=== PATIENT | female | born 1950 | race Caucasian/White ===

== ENCOUNTER 2018-11-14 15:57 | Observation (INO) ==
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
[2018-11-14] MEDS ORDERED: Pantoprazole 40 MG VIAL IVP ONE (16:21)
[2018-11-14] MEDS ORDERED: Ondansetron 4 MG/2 ML VIAL IVP ONE (16:21)
[2018-11-14] MEDS ORDERED: 0.9 % Sodium Chloride 1,000 ML IVC ONE (16:21)
[2018-11-14 16:33] LABS: Bilirubin,Urine Small (Negative); Blood,Urine Trace-intact (Negative); Clarity,Urine Slightly Cloudy (Clear); Color,Urine Yellow (Yellow); Glucose,Urine (UA) Normal (Normal); Ketones,Urine Trace mg/dL (Negative); Leukocyte Esterase,Urine Small (Negative); Nitrite,Urine Negative (Negative); PH,Urine 5.5 pH Units (5.0-8.0); Protein,Urine 30 mg/dL (Neg-Trace); Specific Gravity,Urine 1.025 (1.010-1.025); Urobilinogen,Urine Normal (Normal)
[2018-11-14 16:38] LABS: Basophils # 0.1 K/mcL (0.0-0.2); Basophils % 0.5 %; Eosinophils % 0.1 %; Hematocrit 44.1 % (35.3-44.9); Hemoglobin 14.4 g/dL (11.5-15.4); Immature Granulocytes % 0.4 % (0-4); Lymphocytes # 3.3 K/mcL (0.6-4.6); Lymphocytes % 30.7 %; Mean Corpuscular HGB Conc 32.7 g/dL (31.6-35.5); Mean Corpuscular Hemoglobin 28.1 pg (28.0-33.3); Mean Platelet Volume 10.9 fL (9.4-12.4); Monocytes # 0.5 K/mcL (0.0-1.3); Monocytes % 4.3 %; Neutrophils # 6.8 K/mcL (1.6-8.9); Platelet Count 299 K/mcL (140-400); Red Blood Count 5.13 M/mcL (3.82-4.97); Red Cell Distribution Width 12.9 % (11.5-14.5); White Blood Count 10.7 K/mcL (4.3-11.1)
[2018-11-14 16:39] LABS: Bacteria,Urine Moderate per hpf (None-Few); Mucus,Urine Moderate (Few); RBC,Urine 0-3 per hpf (0-3); Squamous Epithelial Cell,Urine Many per lpf (None-Few); WBC,Urine 50-100 per hpf (0-3)
[2018-11-14] MEDS ORDERED: cefTRIAXone 2,000 MG in 0.9 % Sodium Chloride Mini Bag 100 ML IVPB ONE (16:45)
[2018-11-14 16:54] LABS: Alanine Aminotransferase 19 Units/L (7-52); Albumin/Globulin Ratio 1.1 (1.1-2.2); Alkaline Phosphatase 89 Units/L (34-104); Amylase 32 Units/L (29-103); Aspartate Amino Transferase 20 Units/L (13-39); BUN/Creatinine Ratio 18 (6-26); Bilirubin,Direct 0.1 mg/dL (0.0-0.2); Bilirubin,Indirect 0.3 mg/dL (0.0-1.2); Bilirubin,Total 0.4 mg/dL (0.3-1.0); Blood Urea Nitrogen 12 mg/dL (8-23); Carbon Dioxide 24 mEq/L (23-29); Chloride 104 mEq/L (98-107); Globulin 3.6 g/dL (2.4-3.5); Glucose 135 mg/dL (70-105); Lipase 33 Units/L (11-82); Osmolality,Calculated 288 (280-300); Sodium 138 mEq/L (136-145); Total Protein 7.6 g/dL (6.4-8.9); eGFR For African Americans > 60 (> 60); eGFR For Non-African Americans > 60 (> 60)
[2018-11-14 16:57] LABS: Troponin I < 0.03 ng/mL (< 0.04)
[2018-11-14] MEDS ORDERED: D5% in Water 1,000 ML IVC PRN (19:44)
[2018-11-14] MEDS ORDERED: Naloxone 0.4 MG/ML INJ IVP PRN (19:44)
[2018-11-14] MEDS ORDERED: Dextrose Gel 15 GM/37.5 ML TUBE PO PRN ×2 (19:44)
[2018-11-14] MEDS ORDERED: Mag Hydrox/Al Hydrox/Simeth 30 ML UDC PO PRN (19:44)
[2018-11-14] MEDS ORDERED: MOM Conc 10 ML UD.LIQ PO PRN (19:44)
[2018-11-14] MEDS ORDERED: Ondansetron 4 MG/2 ML VIAL IVP PRN (19:44)
[2018-11-14] MEDS ORDERED: *HR* Dextrose 50 % in Water (Syg) 50 ML SYRINGE IVP PRN (19:44)
[2018-11-14] MEDS: 0.9 % Sodium Chloride 1,000 ML IVC SCH (20:43)
[2018-11-15] MEDS: 0.9 % Sodium Chloride 1,000 ML IVC SCH (04:57)
[2018-11-15] MEDS: Insulin LISPRO 300 UNITS/3 ML VIAL SQ SCH ×3 (10:02→17:21)
--- NOTE | 2018-11-15 11:27 | Electrocardiograph Report ---
[address] [address] Test Date: 2018-11-14 Pat Name: Kamila Low Department: EDP-11 Room: [facility] Gender: F [employer] Field Agent: : [id number] Requested By: Rohan Manrique Order Number: [id number] Reading MD: Skyler Key Measurements Intervals [place] Rate: 89 P: 41 MN: 164 QRS: -1 QRSD: 87 T: 29 QT: 358 QTc: 436 Interpretive Statements Sinus rhythm Low voltage, precordial leads Electronically Signed On 11-15-2018 11:25:43 EDT by Skyler Key
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
[2018-11-15] MEDS ORDERED: Ondansetron ODT 4 MG TAB.RAPDIS SL PRN (17:32)
[2018-11-16 06:44] LABS: Basophils % 0.5 %; Eosinophils # 0.1 K/mcL (0.0-0.6); Eosinophils % 0.9 %; Hemoglobin 11.8 g/dL (11.5-15.4); Immature Granulocytes % 0.5 % (0-4); Lymphocytes # 2.8 K/mcL (0.6-4.6); Lymphocytes % 44.1 %; Mean Corpuscular HGB Conc 31.9 g/dL (31.6-35.5); Mean Corpuscular Hemoglobin 27.9 pg (28.0-33.3); Mean Corpuscular Volume 87.5 fL (83.0-100.0); Mean Platelet Volume 10.4 fL (9.4-12.4); Monocytes # 0.4 K/mcL (0.0-1.3); Monocytes % 6.7 %; Platelet Count 227 K/mcL (140-400); Red Blood Count 4.23 M/mcL (3.82-4.97); Red Cell Distribution Width 12.9 % (11.5-14.5); Segmented Neutrophils % 47.3 %; White Blood Count 6.4 K/mcL (4.3-11.1)
[2018-11-16 07:01] LABS: BUN/Creatinine Ratio 10 (6-26); Blood Urea Nitrogen 7 mg/dL (8-23); Calcium 8.1 mg/dL (8.6-10.3); Carbon Dioxide 26 mEq/L (23-29); Chloride 108 mEq/L (98-107); Glucose 126 mg/dL (70-105); Osmolality,Calculated 292 (280-300); Potassium 3.6 mEq/L (3.5-5.1); Sodium 141 mEq/L (136-145); eGFR For African Americans > 60 (> 60); eGFR For Non-African Americans > 60 (> 60)
[2018-11-16] MEDS: Insulin LISPRO 300 UNITS/3 ML VIAL SQ SCH ×2 (07:54→11:46)
[2018-11-16 11:00] VITALS: BP 126/70
--- NOTE | 2018-11-16 12:15 | Discharge Summary ---
Date of Encounter: 11/16/18 Time of Encounter: 09:30 - Discharge Diagnosis (1) Hematochezia Priority: Primary Status: Acute (2) Abdominal pain Priority: Secondary Status: Acute Qualifiers: Abdominal location: epigastric Qualified Code(s): R10.13 - Epigastric pain (3) Hypertension Priority: Secondary Status: Chronic Qualifiers: Hypertension type: essential hypertension Qualified Code(s): I10 - Ess ential (primary) hypertension (4) Hypothyroidism Priority: Secondary Status: Chronic Qualifiers: Hypothyroidism type: unspecified Qualified Code(s): E03.9 - Hypothyroidism, unspecified Hospital course: Ms. Low is a 68 year old female who came to emergency room stating she had onset of nonbloody vomiting and abdominal discomfort the afternoon of November 12. She reports she developed diarrhea a few hours later and had multiple episodes of vomiting and diarrhea that continued into the next day. When she did not improve she came to emergency room was evaluated. Abdominal/pelvis CT showed mild fecalization of proximal small bowel contents and soft tissue stranding of the adjacent small bowel mesentery. There was no dilated bowel suggesting obstruction. She was admitted to [facility] floor for ongoing care needs. I saw her on November 15 and performed a history and physical. By the time I saw her she stated her abdominal pain had lessened. She was placed on IV fluids and clear liquid diet. She reported hematochezia when I saw her the morning of November 16. There appeared to be a small amount of bright red blood with some clots in the toilet. Her abdominal exam showed less tenderness than on admission but patient and family were concerned and requested transfer to [facility]. Contact was made with bed management and arrangements were complete the afternoon of November 16 for transfer for ongoing evaluation and Rx. - Time Spent with Patient Total time spent providing and/or coordinating discharge services: - Discharge Medications Prescriptions: No Action Sucralfate [Carafate] 1 gm PO QIDAC #20 tablet Citalopram [CeleXA] 40 mg PO DAILY Levothyroxine [Synthroid] 150 mcg PO QAM Lisinopril [Zestril] 10 mg PO DAILY Albuterol Neb [Proventil Neb] 2.5 mg IH Q4HR PRN #25 vial.neb PRN Reason: Wheezing OxyCODONE/APAP 10/325 [Percocet 10/325 MG] 1 tab PO Q8H PRN PRN Reason: Pain Aspirin [Ecotrin] 325 mg PO DAILY Albuterol Sulfate [Proventil Inhaler] 1 - 2 puff IH Q4-6H PRN PRN Reason: Shortness Of Breath Atorvastatin [Lipitor] 40 mg PO DAILY Naproxen [EC-Naprosyn] 500 mg PO Q12H PRN PRN Reason: Pain Glimepiride [Amaryl] 2 mg PO DAILY Famotidine [Pepcid] 20 mg PO BID Omeprazole [PriLOSEC] 20 mg PO BIDAC Home Medications: Citalopram [CeleXA] 40 mg PO DAILY 10/27/14 [History] Levothyroxine [Synthroid] 150 mcg PO QAM 10/27/14 [History] Lisinopril [Zestril] 10 mg PO DAILY 10/27/14 [History] Albuterol Neb [Proventil Neb] 2.5 mg IH Q4HR PRN #25 vial.neb 04/19/18 [Rx] Sucralfate [Carafate] 1 gm PO QIDAC #20 tablet 06/29/18 [Rx] Albuterol Sulfate [Proventil Inhaler] 1 - 2 puff IH Q4-6H PRN 08/03/18 [History] Aspirin [Ecotrin] 325 mg PO DAILY 08/03/18 [History] Atorvastatin [Lipitor] 40 mg PO DAILY 08/03/18 [History] Glimepiride [Amaryl] 2 mg PO DAILY 08/03/18 [History] Naproxen [EC-Naprosyn] 500 mg PO Q12H PRN 08/03/18 [History] OxyCODONE/APAP 10/325 [Percocet 10/325 MG] 1 tab PO Q8H PRN 08/03/18 [History] Famotidine [Pepcid] 20 mg PO BID 08/06/18 [History] Omeprazole [PriLOSEC] 20 mg PO BIDAC 11/14/18 [History] Allergies/Adverse Reactions: Allergy/AdvReac Type Severity Reaction Status Date / Time codeine Allergy Anaphylaxis Verified 11/14/18 18:35 metformin Allergy Diarrhea Verified 11/14/18 18:35 propoxyphene Allergy Vomiting Verified 11/14/18 18:35 [From Darvinit-N] gabapentin AdvReac Nausea Verified 11/14/18 18:35 meloxicam AdvReac Dizziness Verified 11/14/18 18:35 Date of admission: 11/14/18 19:27 Primary care physician: Jeromy Weiss MD - Constitutional Vitals: Temp Pulse Resp BP Pulse Ox 98.6 F 76 17 126/70 95 11/16/18 10:59 11/16/18 10:59 11/16/18 10:59 11/16/18 10:59 11/16/18 10:59 - Patient Status Disposition: Transfer Other Condition: Good - Discharge Instructions
== END 2018-11-16 13:00 | disposition other institution (70) ==
LOC: INPPIK 15:57 → EMEROOPIK 15:57 → INPPIK 19:33
PROVIDERS: ADMIT Internal Medicine; ATTEND Internal Medicine

== ENCOUNTER 2020-08-29 17:21 | Observation (INO) ==
[2020-08-29 18:19] LABS: Basophils # 0.1 K/mcL (0.0-0.2); Basophils % 0.6 %; Eosinophils % 0.3 %; Hemoglobin 12.1 g/dL (11.5-15.4); Immature Granulocytes % 0.3 % (0-4); Lymphocytes # 2.7 K/mcL (0.6-4.6); Lymphocytes % 26.3 %; Mean Corpuscular HGB Conc 32.7 g/dL (31.6-35.5); Mean Corpuscular Hemoglobin 28.7 pg (28.0-33.3); Mean Corpuscular Volume 87.9 fL (83.0-100.0); Mean Platelet Volume 10.7 fL (9.4-12.4); Monocytes # 0.5 K/mcL (0.0-1.3); Monocytes % 4.6 %; Platelet Count 339 K/mcL (140-400); Red Blood Count 4.21 M/mcL (3.82-4.97); Red Cell Distribution Width 13.4 % (11.5-14.5); Segmented Neutrophils % 67.9 %; White Blood Count 10.2 K/mcL (4.3-11.1)
[2020-08-29 18:27] LABS: INR 1.2; Prothrombin Time 13.3 Seconds (9.4-12.1)
[2020-08-29 18:30] LABS: Activated Partial Thrombo Time 26.2 Seconds (26.0-36.0)
[2020-08-29 18:40] LABS: Alanine Aminotransferase 8 Units/L (7-52); Albumin 3.5 g/dL (3.5-5.7); Alkaline Phosphatase 65 Units/L (34-104); Amylase 28 Units/L (29-103); Aspartate Amino Transferase 11 Units/L (13-39); BUN/Creatinine Ratio 20 (6-26); Bilirubin,Total 0.3 mg/dL (0.3-1.0); Blood Urea Nitrogen 16 mg/dL (8-23); Calcium 8.9 mg/dL (8.6-10.3); Carbon Dioxide 26 mEq/L (23-29); Chloride 104 mEq/L (98-107); Globulin 3.4 g/dL (2.4-3.5); Glucose 156 mg/dL (70-105); Lipase 32 Units/L (11-82); Osmolality,Calculated 290 (280-300); Sodium 138 mEq/L (136-145); Total Protein 6.9 g/dL (6.4-8.9); eGFR For African Americans > 60 (> 60); eGFR For Non-African Americans > 60 (> 60)
[2020-08-29] MEDS ORDERED: 0.9 % Sodium Chloride 1,000 ML IV ONE (19:06)
[2020-08-29] MEDS ORDERED: *HR* Metoprolol 5 MG/5 ML VIAL IVP ONE (19:06)
[2020-08-29 19:12] LABS: Bilirubin,Urine Negative (Negative); Blood,Urine Negative (Negative); Clarity,Urine Slightly Cloudy (Clear); Color,Urine Yellow (Yellow); Glucose,Urine (UA) Normal (Normal); Ketones,Urine Negative (Negative); Leukocyte Esterase,Urine Small (Negative); Nitrite,Urine Negative (Negative); PH,Urine 5.5 pH Units (5.0-8.0); Protein,Urine Negative (Neg-Trace); Urobilinogen,Urine Normal (Normal)
[2020-08-29 19:27] LABS: Bacteria,Urine Moderate per hpf (None-Few); Mucus,Urine Moderate per lpf (None-Few); RBC,Urine 0-3 per hpf (0-3); Squamous Epithelial Cell,Urine Moderate per hpf (None-Few)
[2020-08-29] MEDS ORDERED: *HR* Heparin 5,000 UNIT/ML VIAL IVP ONE (21:03)
[2020-08-29] MEDS ORDERED: *HR* Heparin 5,000 UNIT/ML VIAL IVP PRN ×4 (21:03→21:54)
[2020-08-29] MEDS ORDERED: Heparin 25,000UNIT/250ML 1/2NS 25,000 UNIT/250 ML IV.SOLN IVC SCH (21:15)
[2020-08-29 21:18] LABS: Hematocrit 35.6 % (35.3-44.9); Hemoglobin 11.6 g/dL (11.5-15.4); Mean Corpuscular HGB Conc 32.6 g/dL (31.6-35.5); Mean Corpuscular Hemoglobin 28.7 pg (28.0-33.3); Mean Corpuscular Volume 88.1 fL (83.0-100.0); Mean Platelet Volume 10.8 fL (9.4-12.4); Platelet Count 329 K/mcL (140-400); Red Blood Count 4.04 M/mcL (3.82-4.97); Red Cell Distribution Width 13.3 % (11.5-14.5); White Blood Count 12.5 K/mcL (4.3-11.1)
[2020-08-29 21:28] LABS: Heparin anti-factor XA UFH < 0.04 IU/mL (0.30-0.70)
[2020-08-29 21:29] LABS: INR 1.1; Prothrombin Time 13.1 Seconds (9.4-12.1)
[2020-08-29] MEDS ORDERED: Naloxone 0.4 MG/ML INJ IVP PRN (21:54)
[2020-08-29] MEDS ORDERED: *HR* OxyCODONE/APAP 10/325 TABLET PO PRN (21:54)
[2020-08-29] MEDS: Heparin 25,000UNIT/250ML 1/2NS 25,000 UNIT/250 ML IV.SOLN IVC SCH (22:27)
[2020-08-30] MEDS ORDERED: 0.9 % Sodium Chloride 1,000 ML IV ONE (02:17)
[2020-08-30] MEDS ORDERED: Dextrose Gel 15 GM/37.5 ML TUBE PO PRN ×2 (07:26)
[2020-08-30] MEDS ORDERED: D5% in Water 1,000 ML IVC PRN (07:26)
[2020-08-30] MEDS ORDERED: *HR* Dextrose 50 % in Water (Vial) 50 ML VIAL IVP PRN (07:26)
[2020-08-30 08:10] LABS: Basophils # 0.1 K/mcL (0.0-0.2); Basophils % 0.5 %; Eosinophils # 0.1 K/mcL (0.0-0.6); Eosinophils % 0.7 %; Hematocrit 35.2 % (35.3-44.9); Hemoglobin 11.3 g/dL (11.5-15.4); Immature Granulocytes % 0.5 % (0-4); Lymphocytes # 4.3 K/mcL (0.6-4.6); Lymphocytes % 44.8 %; Mean Corpuscular HGB Conc 32.1 g/dL (31.6-35.5); Mean Corpuscular Hemoglobin 28.5 pg (28.0-33.3); Mean Corpuscular Volume 88.9 fL (83.0-100.0); Mean Platelet Volume 10.7 fL (9.4-12.4); Monocytes # 0.5 K/mcL (0.0-1.3); Monocytes % 5.2 %; Neutrophils # 4.6 K/mcL (1.6-8.9); Platelet Count 319 K/mcL (140-400); Red Blood Count 3.96 M/mcL (3.82-4.97); Red Cell Distribution Width 13.4 % (11.5-14.5); Segmented Neutrophils % 48.3 %; White Blood Count 9.5 K/mcL (4.3-11.1)
[2020-08-30 08:31] LABS: BUN/Creatinine Ratio 15 (6-26); Blood Urea Nitrogen 12 mg/dL (8-23); Calcium 8.6 mg/dL (8.6-10.3); Carbon Dioxide 26 mEq/L (23-29); Chloride 105 mEq/L (98-107); Glucose 116 mg/dL (70-105); Osmolality,Calculated 287 (280-300); Potassium 3.6 mEq/L (3.5-5.1); Sodium 138 mEq/L (136-145); eGFR For African Americans > 60 (> 60); eGFR For Non-African Americans > 60 (> 60)
[2020-08-30] MEDS ORDERED: Famotidine 20 MG TABLET PO SCH (09:00)
[2020-08-30] MEDS ORDERED: cefTRIAXone 2,000 MG in 0.9 % Sodium Chloride Mini Bag 100 ML IVPB SCH (09:00)
[2020-08-30] MEDS: Insulin LISPRO 300 UNITS/3 ML VIAL SUBQ SCH ×3 (09:16→17:35)
[2020-08-30] MEDS: cefTRIAXone 2,000 MG in Water for inj. (sterile) 20 ML IVP SCH (09:22)
[2020-08-30] MEDS: *HR* Glimepiride 2 MG TABLET PO SCH ×2 (09:23→21:41)
[2020-08-30] MEDS ORDERED: Nitroglycerin 0.4 MG TAB.SUBL SL PRN (11:27)
[2020-08-30] MEDS ORDERED: DILTIAZEM IVC SCH (11:30)
[2020-08-30] MEDS ORDERED: SODIUM CHLORIDE IVC SCH (11:30)
[2020-08-30] MEDS ORDERED: Perflutren Lipid Microsphere 1.3 ML in 0.9 % Sodium Chloride 8.7 ML IVP PRN (11:34)
[2020-08-30] MEDS ORDERED: DilTIAZem 125 MG in 0.9 % Sodium Chloride 50 MG/100 ML IV.SOLN IVC SCH (12:00)
[2020-08-30 12:18] LABS: Estimated Average Glucose 151 mg/dl; Hemoglobin A1C 6.9 %
[2020-08-30] MEDS: Aspirin Enteric Coated 81 MG Tablet PO SCH (12:47)
[2020-08-30] MEDS: Pantoprazole 40 MG VIAL IVP SCH ×2 (14:07→17:40)
[2020-08-30] MEDS: Sucralfate 1 GM TABLET PO SCH ×2 (17:40→21:41)
[2020-08-30] MEDS ORDERED: Pantoprazole 40 MG VIAL IVP SCH (18:00)
[2020-08-30] MEDS ORDERED: Insulin LISPRO 300 UNITS/3 ML VIAL SUBQ SCH (21:00)
[2020-08-30] MEDS: Heparin 25,000UNIT/250ML 1/2NS 25,000 UNIT/250 ML IV.SOLN IVC SCH (21:43)
[2020-08-31] MEDS: Pantoprazole 40 MG VIAL IVP SCH (06:37)
[2020-08-31 07:28] VITALS: BP 112/77
[2020-08-31] MEDS: Insulin LISPRO 300 UNITS/3 ML VIAL SUBQ SCH (08:14)
[2020-08-31] MEDS: Sucralfate 1 GM TABLET PO SCH (08:17)
[2020-08-31] MEDS: Aspirin Enteric Coated 81 MG Tablet PO SCH (08:17)
[2020-08-31] MEDS: *HR* Glimepiride 2 MG TABLET PO SCH (08:17)
[2020-08-31] MEDS: cefTRIAXone 2,000 MG in Water for inj. (sterile) 20 ML IVP SCH (08:17)
== END 2020-08-31 12:24 | disposition home or self-care (01) ==
LOC: EMEROOPIK 17:21 → INPPIK 17:21
PROVIDERS: ADMIT Family Medicine; ATTEND Family Medicine